=== PATIENT | female | born 1975 | race Two or more races ===

== ENCOUNTER 2022-01-21 08:38 | Emergency (ER) | payer OTHER ==
[~2022-01-21] VITALS: Ht 160 cm; Wt 71.7 kg
[2022-01-21] MEDS ORDERED: LEVSIN/SL0.125 MG SL (14:58)
[2022-01-21] MEDS ORDERED: PEPCID AC20 MG PO (14:58)
== END 2022-01-21 15:30 | disposition home or self-care (01) ==
LOC: ER 08:38
DX: K29.00 Acute gastritis without bleeding (principal)